=== PATIENT | female | born 1985 | race African-American/Black ===

== ENCOUNTER 2019-06-22 01:42 | Emergency (ER) | payer OTHER, SELFPAY ==
--- NOTE | ~2019-06-22 | CT_ITS ---
EXAMINATION: CT abdomen pelvis w con DATE: 06/22/2019 03:28 INDICATION: Upper abdominal pain for one day. Nausea, vomiting, diarrhea TECHNIQUE: Computed tomography (CT) of the abdomen and pelvis was performed with 100 cc Omnipaque 350 intravenous contrast. Automated exposure control and iterative reconstruction technique were employe d. Exam dose: 174.58 mGy-cm total exam DLP. COMPARISON: 04/02/2019 CT abdomen pelvis FINDINGS: The lung bases are clear. Normal heart size. No pericardial or pleural effusion. There is nonspecific periportal edema. No hepatic, splenic, pancreatic, and adrenal or renal space-oc cupying mass lesion is evident. No bile duct or pancreatic duct dilatation. No urinary tract calculus or hydroureteronephrosis is detected. There is fluid within the endometrial cavity; recommend correl ation with menstrual cycle. There is a peripherally enhancing tubular structure in the right adnexal area as well as a 2.5 cm rig ht adnexal cyst. Right ovarian cyst and hydrosalpinx are suggested. Recommend clinical correlation fo r pelvic inflammatory disease, endometriosis, ectopic gestation. Normal caliber of the abdominal aorta. No intraperitoneal or retroperitoneal or pelvic mass lesion or adenopathy is noted otherwise. Mild free fluid is noted in the pelvis. The appendix is not definitively identified. Occasional small bowel and large bowel rectal air-fluid levels are noted, consistent with history of diarrhea. No bowel obstruction is evident. No intraperit ovalle free air. Included skeletal structures are unremarkable. IMPRESSION: Approximately 2.5 cm right adnexal cystic area and apparent hydrosalpinx, mild free flui d in the pelvis. Differential diagnosis includes pelvic inflammatory disease, endometriosis, ectopic gestation, right ovarian cyst and chronic hydrosalpinx Scattered air-fluid levels in the small and large bowel and rectum, consistent with history of diarrh ea; no obstruction is evident Nonspecific periportal edema Reviewed, dictated and finalized at Location A. Reviewed, dictated and finalized at location D. IMPRESSION: Approximately 2.5 cm right adnexal cystic area and apparent hydros alpinx, mild free fluid in the pelvis. Differential diagnosis includes pelvic i nflammatory disease, endometriosis, ectopic gestation, right ovarian cyst and c hronic hydrosalpinx Scattered air-fluid levels in the small and large bowel and rectum, consistent with history of diarrhea; no obstruction is evident Nonspecific periportal edema
[2019-06-22 01:47] VITALS: BP 123/87; PULSE 94; RESP 18; TEMP 36.4; O2SAT 100
--- NOTE | 2019-06-22 01:47 | ED.NAVMDI ---
HPI - Nausea/Vomiting/Diarrhea General Chief complaint: Nausea/Vomiting/Diarrhea Stated complaint: Fever, n/v Time Seen by Provider: 06/22/19 01:44 Source: patient and RN notes reviewed Mode of arrival: ambulatory Limitations: no limitations History of Present Illness HPI Narrative: A 33 y/o female presents to the ED with N/V/D begin at 1:30 PM yesterday afternoon. She reports associated body aches, fatigue, chills, rhinorrhea, epigastric ABD pain, and back pain. She denies any sick contacts. She also denies any dysuria, congestion, cough, or fevers. Patient denies vaginal discharge or bleeding. No lower pelvic pain. Patient is monogamous with her current partner. She has a history of chlamydia in 2008 which was treated. MD elicited complaint: nausea, vomiting and diarrhea Onset (ago): hour(s) (12) Associated nausea: Yes Associated abdominal pain: Yes Location of pain: epigastric Associated symptoms: fever/chills (no fever), fatigue and other (body aches, rhinorrhea, and back pain) Related Data Allergies Allergy/AdvReac Type Severity Reaction Status Date / Time pecan nut Allergy Unknown Unknown Verified 04/02/19 16:38 Penicillins Allergy Unknown Unknown Verified 04/02/19 16:38 shrimp Allergy Unknown Unknown Verified 04/02/19 16:38 Pecan Allergy Mild Rash Uncoded 04/02/19 16:38 Shrimp Allergy Mild TONGUE Uncoded 04/02/19 16:38 ITCHES Review of Systems Review of Systems: Narrative: CONSTITUTIONAL: Denies fevers. Reports chills, fatigue, and body aches. ENT: Denies congestion. Reports rhinorrhea. RESPIRATORY: Denies cough. GASTROINTESTINAL: Reports epigastric abdominal pain, nausea, vomiting, and diarrhea. GENITOURINARY: Denies dysuria. Denies vaginal discharge or bleeding. MUSCULOSKELETAL: Reports back pain. All systems reviewed & are unremarkable except as noted in HPI and below PMFSH Past Medical History Medical History Anxiety Colitis Eczema History of kidney stones Hx: UTI (urinary tract infection) STD (sexually transmitted disease) Surgical History Surgical History Previous section Social History Social History (Reviewed 06/22/19 @ 01:55 by John Shipman Smoking status: Current every day smoker Alcohol intake: current Substance use: never Additional occupation/education comments: marketing agent Gender identity (if verbalized by the patient): Female Exam Narrative: Exam Narrative: GENERAL: Well-appearing, well-nourished, and in no acute distress. Holding emesis bag. HEAD: Normocephalic, atraumatic. EYES: PERRLA and EOMI. ENT: Nares clear, no rhinorrhea or epistaxis. Mucous membranes moist. NECK: Supple. CHEST: Clear to auscultation. No respiratory distress. HEART: Regular rate and rhythm. No murmur heard. Normal peripheral pulses. ABDOMEN: Soft, epigastric tenderness, no guarding or rigidity, nondistended, normal active bowel sounds. EXTREMITIES: Normal range of motion. No edema. SKIN: Warm, dry, no rash. NEURO: No focal deficits. Alert and oriented X3. Course Course Emergency Course: Patient presented for evaluation of abdominal pain, vomiting and diarrhea. At the time of initial assessment, ABCs are intact and vital signs are stable patient has very mild epigastric tenderness, no lower abdominal tenderness, she is denying any urinary symptoms, vaginal discharge or bleeding. Laboratory results show mild leukocytosis. No severe electrolyte derangement or acute kidney injury. No UTI. Patient is not . CT scan is consistent with gastroenteritis. Also spoke with the radiologist in regards to possible findings of chronic PID or pyosalpinx that is unchanged from previous CT, but patient has no lower pelvic pain, vaginal discharge or bleeding, and I believe she can follow-up with an MEDICAL RECORDS CUSTODIAN for this. I spoke with Dr. Dominguez OBSHREYAS call or contact centre team leader who did not recommend any antibiotic or other intervention. Kasey
[2019-06-22] MEDS: SODIUM CHLORIDE 0.9% IV 2,000 ML 999 ML IV CONT (01:58)
[2019-06-22] MEDS: ONDANSETRON INJ 4 MG/2 ML VIAL IV PUSH (01:58)
--- NOTE | 2019-06-22 01:59 | PC.NURSE ---
pt states she cannot urinate right now. fluids infusing. EDP notified
[2019-06-22 02:01] LABS: Basophils Percent Auto 0.1 % (0.2-1.2); Hematocrit 42.6 % (37.0-47.0); Hemoglobin 14.3 g/dL (12.0-15.0); Immature Granulocyte Absolute 0.06 K/mm3 (0.00-0.031); Immature Granulocyte Percent A 0.4 % (0-0.5); Lymphocytes Absolute Auto 0.81 K/mm3 (0.9-3.2); Lymphocytes Percent Auto 5.5 % (18.3-44.2); Mean Corpuscular HGB Conc 33.6 g/dl (32-36); Mean Corpuscular Hemoglobin 30.9 pg (26-34); Mean Platelet Volume 8.9 fl (7.4-10.4); Monocytes Absolute Auto 0.4 K/mm3 (0.1-0.6); Monocytes Percent Auto 2.4 % (2.6-8.5); Neutrophils Absolute Auto 13.4 K/mm3 (1.3-6.7); Neutrophils Percent Auto 91.6 % (45.5-73.1); Platelet Count Result 286 k/mm3 (150-375); Red Blood Count 4.63 M/mm3 (4.2-5.4); White Blood Count 14.6 K/mm3 (4.5-10.0)
[2019-06-22 02:16] LABS: Alanine Aminotransferase 22 U/L (4-35); Albumin Level 5.1 g/dL (3.5-5.1); Alkaline Phosphatase 65 U/L (38-126); Aspartate Amino Transferase 30 U/L (14-36); Bilirubin,Total 1.1 mg/dL (0.2-1.3); Blood Urea Nitrogen 13 mg/dL (7-17); Calcium 9.7 mg/dL (8.4-10.2); Carbon Dioxide 19 mmol/L (22-30); Chloride 108 mmol/L (98-107); Estimated Glomerular Filt Rate > 60; Glucose 114 mg/dL (65-105); Lipase 24 U/L (23-300); Sodium 141 mmol/L (137-145)
[2019-06-22] MEDS: METOCLOPRAMIDE HCL INJ 10 MG/2 ML VIAL IV PUSH (02:27)
[2019-06-22] MEDS: MORPHINE SULFATE 4 MG/ML INJ IV PUSH (02:33)
--- NOTE | 2019-06-22 02:50 | PC.NURSE ---
pt unable to void due to pain. requesting pain medications. EDP notified
[2019-06-22 03:25] LABS: Add Urine Microscopic? YES; Appearance Urine Clear (Clear); Bacteria Urine Trace /hpf; Bilirubin Urine Negative (Negative); Blood Urine Negative (Negative); Color Urine Yellow (Yellow); Glucose Urine UA Negative (Negative); Ketones Urine 2+ mg/dL (Negative); Leukocyte Esterase Ur Negative LEU/UL (Negative); Mucus Urine Heavy /lpf; Nitrate Urine Negative (Negative); Protein Urine 2+ mg/dL (Negative); Specific Grav Ur 1.028 (1.001-1.035); Squamous Epithelial Cell Urine Many /hpf (Few); Urobilinogen Urine Negative mg/dL (<2.0); WBC Urine 0-3 /hpf
[2019-06-22 04:15] VITALS: BP 115/57; PULSE 72; RESP 15; O2SAT 97
== END 2019-06-22 04:17 | disposition home or self-care (01) ==
PROVIDERS: Emergency Provider Emergency Medicine; PCP Emergency Medicine
DX: K52.9 Noninfective gastroenteritis and colitis, unspecified (principal); Z87.442 Personal history of urinary calculi; Z87.440 Personal history of urinary (tract) infections; F17.200 Nicotine dependence, unspecified, uncomplicated; N94.89 Other specified conditions associated with female genital organs and menstrual cycle
CPT/HCPCS: 36415; 74177; 80053; 81001; 81025; 83690; 85025; 96361; 96374; 96375; 99284; J2270; J2405; J2765; J7030; Q9967

== ENCOUNTER 2025-02-11 16:15 | Emergency (ER) | payer OTHER, SELFPAY ==
--- OUTSIDE RECORDS SUMMARY | 2001-05-25 07:30 | XMS_ITS | Continuity of Care Document ---
Author Organization [facility] Address [address] [place] [address] [address] [place] [address] Phone Care Team Providers Care Social Welfare Clerk Name Role Phone Ab Espinoza Unavailable Unavailable Advance Directives Directive Yes / No Effective Date File Name No Information Encounters Encounter Description Practice Location Reason(s) For Visit Diagnoses Date Provider Providers Copied on Encounter Merged with [facility], [address], [place], [place], [id number], [place] tel:[phone] [facility] [place] No Information May- 1-200 2 Doisy Edward. [address] [facility] [place] , [address], [place], [address], [place]. tel:[phone] Family History Family Member Type Diagnosis Age At Onset No Information Payers Payer name Insurance type Covered alliance party ID Authoriza tion(s) Medicaid [facility] [id number] Social History Type Description Quantity Date Captured Comments Sex Female Smoking Status No Information Chief Complaint And Reason For Visit No Information Reason For Referral Reason For Referral No Information History Of Present Illness Encounter Date Complaint History Of Prese nt Illness No Information Functional Status Date Functional Assessmen t No Information Instructions Date Instruction Additional Infor mation No Information Assessments Type Assessment Date No Information Patient Care Teams Name Effective Dates (start - stop) Status Members No Information
--- OUTSIDE RECORDS SUMMARY | 2001-05-25 07:30 | XMS_ITS | Continuity of Care Document ---
Author Organization [facility] Address [address] [place] [address] [address] [place] [address] Phone Care Team Providers Care Steel Heater Name Role Phone Ab Espinoza Unavailable Unavailable Advance Directives Directive Yes / No Effective Date File Name No Information Encounters Encounter Description Practice Location Reason(s) For Visit Diagnoses Date Provider Providers Copied on Encounter [facility], [address], [place], [place], [id number], [place] tel:[phone] [facility] [place] No Information May- 1-200 [address] Do[address] Edward. [address] [facility] [place] , [address], [place], [address], [place]. tel:[phone] Family History Family Member Type Diagnosis Age At Onset No Information Payers Payer name Insurance type Covered constitution party ID Authoriza tion(s) Medicaid [facility] [id number] Social History Type Description Quantity Date Captured [...]
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
--- NOTE | ~2025-02-11 | XR_ITS ---
XR humerus LT INDICATION: pain COMPARISON: None FINDINGS: Two views of the left humerus demonstrate no acute fracture or dislocation. IMPRESSION: No acute fracture or dislocation. Reviewed, dictated and finalized at location S. INE MEASUREMENTS ENGINEER
[2025-02-11 16:34] VITALS: BP 136/64; PULSE 64; RESP 16; TEMP 36.8; O2SAT 100
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
[2025-02-11 18:40] VITALS: BP 130/86; PULSE 77; RESP 18; O2SAT 99
[2025-02-11 19:44] VITALS: BP 139/75; PULSE 73; RESP 14; TEMP 36.4; O2SAT 100
== END 2025-02-11 19:40 | disposition home or self-care (01) ==
PROVIDERS: Emergency Provider Student in an Organized Health Care Education/Training Program
DX: S63.601A Unspecified sprain of right thumb, initial encounter (principal); S40.022A Contusion of left upper arm, initial encounter; F41.9 Anxiety disorder, unspecified; Z87.440 Personal history of urinary (tract) infections; Z87.442 Personal history of urinary calculi; V43.52XA Car driver injured in collision with other type car in traffic accident, initial encounter
CPT/HCPCS: 73060; 73130; 99284